=== PATIENT | female | born 1935 | race Caucasian/White ===

== ENCOUNTER 2016-12-25 15:40 | Emergency (ER) | payer OTHER ==
[2016-12-25 15:52] VITALS: BP 151/74; PULSE 73; TEMP 98.8; BMI 19.5
--- NOTE | 2016-12-25 16:57 | PDOC ---
History of Present Illness - General Chief Complaint: Back Pain Stated Complaint: BACK PAIN Time Seen by Provider: 12/25/16 16:11 - History of Present Illness Initial Comments: 01/01/17 13:27 Chief complaint: Low back pain History of present illness: Patient with multiple compression fractures of the lumbar spine in the past, presents with an exacerbation of her back pain. Onset gradual, worsening, taking no analgesics for the pain. Review of systems: Denies urinary or fecal incontinence or retention, denies radicular symptoms. Denies chest pain, shortness of breath, abdominal pain, nausea, vomiting, diarrhea, visual or focal neurologic symptoms, unsteadiness of gait Past medical history, social history, and family history reviewed from old record, noncontributory other than as noted Physical exam: Alert oriented well-developed well-nourished no acute distress cheerful and cooperative Afebrile, vital signs normal HEENT normal Neck without tenderness or deformity, no bruits masses or nodes Lungs clear CV regular without murmur rub or gallop Abdomen benign LS spine with straightening, loss of normal lumbar lordosis, no point tenderness or inflammatory changes. Straight leg raising negative. No distal sensory or motor deficits Impression: Exacerbation of chronic back pain. This was discussed with her daughter. Since the patient lives alone, narcotic analgesics to be avoided. Will continue taking Tylenol and prescribed lidocaine patch. Follow-up with primary physician. Plan: As above with supportive care from the family and PMD follow-up. Patient improved upon discharge, pain significantly improved. Past History - Past Medical History Allergies/Adverse Reactions: Allergies Allergy/AdvReac Type Severity Reaction Status Date / Time Sulfa (Sulfonamide Allergy Verified 07/29/16 13:18 Antibiotics) Home Medications: Ambulatory Orders Aspirin Coated [Ecotrin -] 81 mg PO DAILY #0 tablet.ec 06/24/15 Lidocaine 5% Patch [Lidoderm -] 1 patch TP DAILY #30 patch 12/25/16 CVA: Yes (TIA, CVA) HTN: Yes Hypercholesterolemia: Yes Thyroid Disease: Yes - Psycho/Social/Smoking Cessation Hx Anxiety: No Suicidal Ideation: No Smoking History: Never smoked Have you smoked in the past 12 months: Yes Number of Cigarettes Smoked Daily: 10 If you are a former smoker, when did you quit?: 2014 Information on smoking cessation initiated: No 'Breaking Loose' booklet given: 09/22/14 Hx Alcohol Use: No Drug/Substance Use Hx: No Substance Use Type: None Hx Substance Use Treatment: No *Physical Exam - Vital Signs Last Vital Signs Temp Pulse Resp BP Pulse Ox 98.8 F 73 18 151/74 97 12/25/16 15:40 12/25/16 15:40 12/25/16 15:40 12/25/16 15:40 12/25/16 15:40 *DC/Admit/Observation/Transfer Diagnosis at time of Disposition: Low back strain Qualifiers: Encounter type: initial encounter Qualified Code(s): S39.012A - Strain of muscle, fascia and tendon of lower back, initial encounter - Discharge Dispostion Disposition: HOME Condition at time of disposition: Stable Admit: No - Prescriptions Prescriptions: Lidocaine 5% Patch [Lidoderm -] 1 patch TP DAILY #30 patch - Referrals Referrals: Eduardo Aguilar MD [Primary Care Provider] - 3 days - Patient Instructions Printed Discharge Instructions: DI for Low Back Pain
[2016-12-25 17:02] LABS: URINE APPEARANCE Clear; URINE BILIRUBIN Negative (NEGATIVE); URINE BLOOD Negative (NEGATIVE); URINE COLOR YELLOW; URINE GLUCOSE (UA) Negative (NEGATIVE); URINE KETONE Negative (NEGATIVE); URINE LEUK ESTERASE Negative (NEGATIVE); URINE NITRITE Negative (NEGATIVE); URINE PROTEIN Negative (NEGATIVE); URINE UROBILINOGEN 0.2 E.U/dl (0.2-1.0)
[2016-12-25] MEDS ORDERED: LIDOCAINE 5% TOPICAL PATCH TP ONE (18:10)
== END 2016-12-25 19:04 | disposition home or self-care (01) ==
LOC: FER 15:40
DX: S39.012A Strain of muscle, fascia and tendon of lower back, initial encounter (principal); X58.XXXA Exposure to other specified factors, initial encounter; Y93.9 Activity, unspecified; Y92.9 Unspecified place or not applicable; Z87.891 Personal history of nicotine dependence; Z86.73 Personal history of transient ischemic attack (TIA), and cerebral infarction without residual deficits; I10 Essential (primary) hypertension; E07.9 Disorder of thyroid, unspecified; E78.00 Pure hypercholesterolemia, unspecified
CPT/HCPCS: 81003; 99282-25

== ENCOUNTER 2017-01-19 13:06 | Observation (INO) | payer OTHER ==
[2017-01-19] MEDS ORDERED: ACETAMINOPHEN 1000 MG/100 ML VIAL (NON FORMULARY) IVPB ONE (13:26)
[2017-01-19] MEDS ORDERED: SODIUM CHLORIDE 1,000 ML IV SCH ×2 (13:30→22:00)
[2017-01-19] MEDS ORDERED: ACETAMINOPHEN INJECTION 100 ML IVPB ONE (13:47)
--- NOTE | 2017-01-19 14:43 | PDOC ---
History of Present Illness <KhushbooEduardo Graves - Last Filed: 01/19/17 15:58> - General History Source: Patient, Family Exam Limitations: No Limitations - History of Present Illness Initial Comments: 01/19/17 15:23 CHIEF COMPLAINT: Confusion since 10 PM last night HISTORY OF PRESENT ILLNESS:81-year-old female with a history of stroke and TIAs , residual left hemisensory loss, presents complaining of confusion and difficulty swallowing that started at 10 PM last night. The patient has been having increasing back pain secondary to osteoporosis and spinal compression fractures. The pain has been much more severe over the last 3 weeks. She has been having increasing difficulty walking and getting out of bed. She restarted her baclofen 3 days ago, taking it 3 times daily on Wednesday and then 3 times daily yesterday. Last night she started to get more confused, and have difficulty swallowing and speaking. Her daughter became concerned so she brought her to the emergency department today. After coming into the emergency department, her confusion seems to be resolving. She continues to have severe low back pain with difficulty changing position, and great difficulty even sitting up. She denies fever or chills. She denies dysuria. REVIEW OF SYSTEMS: GENERAL/CONSTITUTIONAL: No fever or chills. Positive generalized weakness. No weight change. HEAD, EYES, EARS, NOSE AND THROAT: No change in vision. No ear pain or discharge. No sore throat. CARDIOVASCULAR: No chest pain or shortness of breath. RESPIRATORY: No cough, wheezing, or hemoptysis. GASTROINTESTINAL: No nausea, vomiting, diarrhea or constipation. No rectal bleeding. GENITOURINARY: No dysuria, frequency, or change in urination. MUSCULOSKELETAL: Severe chronic back pain, getting much worse in the recent weeks. History of multiple compression fractures in the spine. SKIN AND BREASTS: No rash or easy bruising. NEUROLOGIC: No headache, vertigo, loss of consciousness. Positive history of left-sided decreased sensation. Positive history of CVA and TIA. PSYCHIATRIC: No depression or anxiety. Patient is very concerned about her chronic back pain. ENDOCRINE: No increased thirst. No abnormal weight change. HEMATOLOGIC/LYMPHATIC: No anemia, easy bleeding, or history of blood clots. ALLERGIC/IMMUNOLOGIC: No hives or skin allergy. No latex allergy. <Kyle Michaels - Last Filed: 01/23/17 07:10> - General Chief Complaint: CVA/TIA Stated Complaint: NUMBNESS,BACK PAIN, SLURRED SPEECH Time Seen by Provider: 01/19/17 13:09 NIH Stroke Scale - Last Known Well Date/Time & Onset Date Last Known Well: 01/18/17 Time Last Known Well: 22:00 - Initial Evaluation Level of consciousness: Alert Ask patient the month and their age: Answers both correctly Ask patient to open & close eyes; make fist and let go: Obeys both correctly Best gaze (horizontal eye movement): Normal Visual field testing: No visual field loss Facial paresis (Show teeth/raise eyebrows/close eyes tight): Normal symmetrical movement Motor Function: Left Arm: Normal Motor Function: Right Arm: Normal (extends arm 90 (or 45) degrees for 10 seconds without drift Motor Function: Left Leg: Normal (extends leg 30 degrees for 5 seconds without drift) Motor Function: Right Leg: Normal (extends leg 30 degrees for 5 seconds without drift) Limb Ataxia: No ataxia Sensory(Use pinprick test arms,legs,trunk,face/side to side): Mild to moderate decrease in sensation Best language (Describe picture, name items, read sentences): No Aphasia Dysarthria (read several words): Normal articulation Extinction and Inattention: No abnormality (this sensory loss is from old stroke ) - Total Score NIH Stroke Scale Score: 1 <Kyle Michaels - Last Filed: 01/23/17 07:10> tPA Exclusion Checklist 0-3hr - Time Elapsed Date last known well: 01/18/17 Time last known well: 22:00 Elaspsed time: 4 Day(s) and 9 Hour(s) and 10 Minutes - Thrombolytic Therapy Candidate Is the patient eligible for Thrombolytic Therapy?: No - Ineligibility reason(s) Reasons No tPA given: Outside of window - delayed arrival <Kyle Michaels - Last Filed: 01/23/17 07:10> Past History <Eduardo Reaves - Last Filed: 01/19/17 15:58> - Past Medical History CVA: Yes (TIA, CVA) HTN: Yes Hypercholesterolemia: Yes Thyroid Disease: Yes Other medical history: osteoporosis, lumbar spine vertebral compression fractures - Psycho/Social/Smoking Cessation Hx Anxiety: No Suicidal Ideation: No Smoking History: Never smoked Have you smoked in the past 12 months: Yes Number of Cigarettes Smoked Daily: 10 If you are a former smoker, when did you quit?: 2014 Information on smoking cessation initiated: No 'Breaking Loose' booklet given: 09/22/14 Hx Alcohol Use: No Drug/Substance Use Hx: No Substance Use Type: None Hx Substance Use Treatment: No <Kyle Michaels - Last Filed: 01/23/17 07:10> - Past Medical History Allergies/Adverse Reactions: Allergies Allergy/AdvReac Type Severity Reaction Status Date / Time Sulfa (Sulfonamide Allergy Verified 01/19/17 13:23 Antibiotics) Home Medications: Ambulatory Orders Aspirin Coated [Ecotrin -] 81 mg PO DAILY #0 tablet.ec 06/24/15 Baclofen 10 mg PO TID 01/19/17 Levothyroxine Sodium [Synthroid] 88 mcg PO DAILY 01/19/17 Warfarin Sodium 4 mg PO DAILY 01/19/17 Acetaminophen W/ Codeine #3 [Tylenol # 3 -] 1 tab PO Q6H PRN #30 tablet MDD 4 Acetaminophen [Tylenol .Regular Strength -] 650 mg PO Q6H PRN #0 tablet Amino Acids/Protein Hydrolys [Prosource No Carb Liquid Pkt] 30 ml PO BID@0800, 1730 packet 01/21/17 Lidocaine 5% Patch [Lidoderm -] 1 patch TP DAILY patch 01/21/17 Lidocaine Patch Removal [Lidoderm Patch Removal] 1 each MC DAILY@2200 each 04/01 Polyethylene Glycol 3350 [Miralax 119 gm Btl -] 17 gm PO BID bottle 01/21/17 Ranitidine [Zantac -] 150 mg PO DAILY tablet 01/21/17 *Physical Exam - Vital Signs Last Vital Signs Temp Pulse Resp BP Pulse Ox 98.1 F 76 17 148/72 99 01/19/17 13:08 01/19/17 13:08 01/19/17 13:08 01/19/17 13:52 01/19/17 13:08 <Eduardo Reaves - Last Filed: 01/19/17 15:58> - Vital Signs Last Vital Signs Temp Pulse Resp BP Pulse Ox 98.1 F 76 17 148/72 99 01/19/17 13:08 01/19/17 13:08 01/19/17 13:08 01/19/17 13:52 01/19/17 13:08 - Physical Exam Comments: 01/19/17 15:28 GENERAL: The patient is awake, alert, and somewhat slow in her answers, but oriented 3 including January 2017. She is of severe lumbar back pain. HEAD: Normal with no signs of trauma. EYES: Pupils equal, round and reactive to light, extraocular movements intact, sclera anicteric, conjunctiva clear. ENT: Ears normal, nares patent, oropharynx clear without exudates. Moist mucous membranes. NECK: Normal range of motion, supple without lymphadenopathy, JVD, or masses. LUNGS: Breath sounds equal, clear to auscultation bilaterally. No wheezes, and no crackles. CHEST: Positive scoliosis of the thoracic spine and lumbar spine. HEART: Regular rate and rhythm, normal S1 and S2 without murmur, rub or gallop. ABDOMEN: Soft, nontender, normoactive bowel sounds. No guarding, no rebound. No masses. EXTREMITIES: Normal range of motion, no edema. No clubbing or cyanosis. No cords, erythema, or tenderness. NEUROLOGICAL: Cranial nerves normal. Motor is 5 over 5 in all extremities. No pronator drift. Positive left sided sensory loss to light touch in the arm and leg. (Old). Normal speech. Unable to walk due to severe low back pain. PSYCH: Normal mood, normal affect. SKIN: Warm, Dry, normal turgor, no rashes or lesions noted. <Kyle Michaels - Last Filed: 01/23/17 07:10> Heart Score/ECG Review - ECG Impressions Comment:: 01/19/17 15:58 12 lead EKG shows normal sinus rhythm at 71 bpm. Kinney is normal. The interval are normal, there is early re-polarization diffusely. Otherwise unremarkable EKG. <Eduardo Reaves - Last Filed: 01/19/17 15:58> ED Treatment Course - LABORATORY CBC & Chemistry Diagram: 01/19/17 13:40 01/19/17 13:40 - Medications Given in the ED: ED Medications Discontinued Medications Generic Name Dose Route Start Last Admin Trade Name Freq PRN Reason Stop Dose Admin Acetaminophen 500 mg 01/19/17 13:26 01/19/17 13:52 Ofirmev Injection - IVPB 01/19/17 13:27 500 mg ONCE ONE Administration <Eduardo Reaves - Last Filed: 01/19/17 15:58> - LABORATORY CBC & Chemistry Diagram: 01/20/17 07:16 01/20/17 07:16 - RADIOLOGY Radiology Studies Ordered: Category Date Time Status HEAD CT WITHOUT CONTRAST [CT] Stat CT Scan 01/19/17 13:24 Completed CHEST - PA [RAD] Stat Radiology 01/19/17 13:24 Taken SPINE-LUMBAR SACRAL [RAD] Stat Radiology 01/19/17 13:24 Completed - Medications Given in the ED: ED Medications Discontinued Medications Generic Name Dose Route Start Last Admin Trade Name Fremaciej PRN Reason Stop Dose Admin Acetaminophen 500 mg 01/19/17 13:26 01/19/17 13:52 Ofirmev Injection - IVPB 01/19/17 13:27 500 mg ONCE ONE Administration - Consult/PCP Case discussed with personal care physician: Eduardo Aguilar M <Kyle Michaels - Last Filed: 01/23/17 07:10> Medical Decision Making - Medical Decision Making 01/19/17 14:44 LUMBAR SPINE X-RAY impressions reported by Dr. Lee: Osteopenia. Compression deformity involving the superior endplate of L1. Compression deformity involving the superior, inferior endplate of L2 - increased in comparison to x-rays of lumbosacral spine June 16, 2015. 01/19/17 14:[address] Impressions reported by : No evidence of acute intercranial hemorrhage, edema, midline shift, mass effect , or skull fracture. No CT evidence of acute territorial infarction 01/19/17 15:02 CHEST X-RAY impressions reported by : No evidence of active pulmonary disease. <Eduardo Reaves - Last Filed: 01/19/17 15:58> - Medical Decision Making 01/19/17 15:36 Patient is a 81-year-old female who presents to the emergency department with acute confusional state and difficulty speaking and swallowing since 10 PM last night. She is outside of any possible window for TPA given that the symptoms have been present for over 12 hours. She is also outside the window for any catheter based therapy. The patient's confusion could possibly be due to cerebrovascular disease, but also could be possibly related to the baclofen which she restarted 72 hours ago. She does appear to be improving here in the ED, with confusion having resolved and her difficulty speaking and swallowing also resolving. She has been eating poorly and is somewhat dehydrated with hyponatremia. Impression: 1) acute confusional state, possibly related to baclofen toxicity, possible TIA with symptoms now resolving. 2) dehydration and poor by mouth intake with hyponatremia. 3) severe osteoporosis with multiple spinal compression fractures with chronic debilitating pain and difficulty ambulating, given IV acetaminophen in the emergency department. Patient had some modest relief of pain. Laboratory Results - last 24 hr 01/19/17 01/19/17 01/19/17 13:40 13:40 13:40 WBC 7.1 RBC 4.06 Hgb 12.4 Hct 36.1 MCV 88.7 MCHC 34.3 RDW 15.3 Plt Count 192 MPV 7.0 L Neutrophils % 81.2 Lymphocytes % 8.6 Monocytes % 8.6 Eosinophils % 1.1 Basophils % 0.5 Sodium 129 L Potassium 4.3 Chloride 96 L Carbon Dioxide 24 Anion Gap 9 BUN 11 D Creatinine 0.7 Creat Clearance w eGFR > 60 Random Glucose 109 H D Calcium 9.3 Total Bilirubin 0.8 D AST 30 ALT 24 D Alkaline Phosphatase 131 H D Creatine Kinase 75 Total Protein 6.5 Albumin 3.8 Urine Appearance Urine pH Ur Specific [place] Urine Protein Urine Glucose (UA) Urine Ketones Urine Blood Urine Nitrite Urine Bilirubin Urine Urobilinogen Ur Leukocyte Esterase 01/19/17 15:03 WBC RBC Hgb Hct MCV MCHC RDW Plt Count MPV Neutrophils % Lymphocytes % Monocytes % Eosinophils % Basophils % Sodium Potassium Chloride Carbon Dioxide Anion Gap BUN Creatinine Creat Clearance w eGFR Random Glucose Calcium Total Bilirubin AST ALT Alkaline Phosphatase Creatine Kinase Total Protein Albumin Urine Appearance Clear Urine pH 5.5 Ur Specific [place] <= 1.005 Urine Protein Negative Urine Glucose (UA) Negative Urine Ketones Negative Urine Blood 1+ H Urine Nitrite Negative Urine Bilirubin Negative Urine Urobilinogen 0.2 e.u/dl Ur Leukocyte Esterase Negative 01/19/17 15:41 [facility] hospitalist notified regarding admission. 01/19/17 16:36 The scribe's documentation has been prepared under my direction and personally reviewed by me in its entirety. I have confirmed that the note above accurately reflects all work, treatment, procedures, and medical decision- making performed by me. <Kyle Michaels - Last Filed: 01/23/17 07:10> *DC/Admit/Observation/Transfer <Eduardo Reaves - Last Filed: 01/19/17 15:58> - Discharge Dispostion Admit: Yes Decision to Admit order Date/Time: 01/19/17 15:[address] Aguilar <Kyle Michaels - Last Filed: 01/23/17 07:10> Diagnosis at time of Disposition: Acute encephalopathy, Hyponatremia, Dehydration Lumbar compression fracture Qualifiers: Encounter type: initial encounter Fracture type: closed Qualified Code(s): S32.000A - Wedge compression fracture of unspecified lumbar vertebra, initial encounter for closed fracture - Discharge Dispostion Condition at time of disposition: Improved
[2017-01-19 14:51] LABS: BASOPHIL 0.5 % (0-2.0); EOSINOPHIL 1.1 % (0-4.5); MCH 30.4 pg (25.7-33.7); MCHC 34.3 g/dl (32.0-36.0); MEAN CELL VOLUME 88.7 fl (80-96); NEUTROPHILS 81.2 % (42.8-82.8); PLATELET COUNT 192 K/MM3 (134-434); RDW 15.3 % (11.6-15.6); WHITE BLOOD COUNT 7.1 K/mm3 (4.0-10.0)
[2017-01-19 15:08] LABS: ALBUMIN 3.8 g/dl (3.5-5.0); ALK PHOS 131 U/L (32-92); ANION GAP 9 (8-16); BILIRUBIN,TOTAL 0.8 mg/dl (0.2-1.0); CALCIUM 9.3 mg/dl (8.4-10.2); CO2 24 mmol/L (22-28); CREATININE 0.7 mg/dl (0.6-1.3); GLUCOSE,RANDOM 109 mg/dl (74-106); SGOT/AST 30 U/L (10-42); SGPT/ALT 24 U/L (10-40); TOT PROT 6.5 g/dl (6.4-8.3)
[2017-01-19 15:10] LABS: CPK(DFH) 75 IU/L (26-140)
[2017-01-19 15:16] LABS: PH,URINE 5.5 (4.5-8); URINE APPEARANCE Clear; URINE BILIRUBIN Negative (NEGATIVE); URINE GLUCOSE (UA) Negative (NEGATIVE); URINE KETONE Negative (NEGATIVE); URINE LEUK ESTERASE Negative (NEGATIVE); URINE NITRITE Negative (NEGATIVE); URINE PROTEIN Negative (NEGATIVE); URINE UROBILINOGEN 0.2 E.U/dl (0.2-1.0)
[2017-01-19 15:18] LABS: URINE BLOOD 1+ (NEGATIVE)
[2017-01-19 15:43] LABS: INR 3.01 (0.82-1.09)
[2017-01-19 16:08] LABS: TROPONIN I (DFP) < 0.03 ng/ml (0.03-0.50)
[2017-01-19 18:53] VITALS: BMI 14.8
[2017-01-19] MEDS ORDERED: ACETAMINOPHEN 325 MG TABLET (FP) PO PRN (21:40)
[2017-01-19] MEDS ORDERED: HEPARIN NA (PORCINE) 5,000 UNITS/ML 1ML VIAL SQ SCH (22:00)
--- NOTE | 2017-01-19 22:20 | HP ---
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 Also associated with difficulty swallowing. Pt now reports that she had taken 4 baclofen pills in a 12 hour period yesterday. Upon exam, pt now alert and fully oriented. Pt denies any further trouble swallowing or altered mental status but does report severe back pain. The back pain is chronic but has gotten progressively worse over the past few weeks and restarted her baclofen 2 days ago. Pt denies chest pain, palpitations , SOB, N/V/D. Reports last BM was 8 days ago and reports she frequently only has very small BMs and often has leakage of stool. ER course was notable for: (1) LS xray with worsened compression fractures. (2) Sodium 129 Recent Travel: pt denies PAST MEDICAL HISTORY: Hyperlipidemia CVA/TIAs hypothyroidism denies any history of atrial fibrillation or irregular heartbeat PAST SURGICAL HISTORY: bladder lift and tubal lligation age 34 Social History: Smoking: quit 2 years ago, previous 3/4ppd smoker Alcohol: pt denies Drugs: pt denies Family History: mother age 90, dementia, mac degeneration father age 32, WW2 sister age 59, NC sister age 65, cervical cancer son age 46, NC daughter age 49, [place] Allergies Sulfa (Sulfonamide Antibiotics) Allergy (Verified 01/19/17 13:23) HOME MEDICATIONS: 3 Medication Instructions Recorded Aspirin Coated [Ecotrin -] 81 mg PO DAILY #0 tablet.ec 06/24/15 Baclofen 10 mg PO TID 01/19/17 Levothyroxine Sodium [Synthroid] 88 mcg PO DAILY 01/19/17 Warfarin Sodium 4 mg PO DAILY 01/19/17 Atorvastatin 40mg po daily REVIEW OF SYSTEMS CONSTITUTIONAL: Present: generalized weakness, malaise Absent: fever, chills, diaphoresis, loss of appetite, weight change HEENT: Absent: rhinorrhea, nasal congestion, throat pain, throat swelling, difficulty swallowing, mouth swelling, ear pain, eye pain, visual changes CARDIOVASCULAR: Absent: chest pain, syncope, palpitations, irregular heart rate, lightheadedness , peripheral edema RESPIRATORY: Absent: cough, shortness of breath, dyspnea with exertion, orthopnea, wheezing, stridor, hemoptysis GASTROINTESTINAL: Absent: abdominal pain, abdominal distension, nausea, vomiting, diarrhea, constipation, melena, hematochezia GENITOURINARY: Absent: dysuria, frequency, urgency, hesitancy, hematuria, flank pain, genital pain MUSCULOSKELETAL: Present: back pain Absent: myalgia, arthralgia, joint swelling, neck pain SKIN: Absent: rash, itching, pallor HEMATOLOGIC/IMMUNOLOGIC: Absent: easy bleeding, easy bruising, lymphadenopathy, frequent infections ENDOCRINE: Absent: unexplained weight gain, unexplained weight loss, heat intolerance, cold intolerance NEUROLOGIC: Present: mental status changes Absent: headache, focal weakness or paresthesias, dizziness, unsteady gait, seizure, bladder or bowel incontinence PSYCHIATRIC: Absent: anxiety, depression, suicidal or homicidal ideation, hallucinations. PHYSICAL EXAMINATION Vital Signs - 24 hr 3 01/19/17 01/19/17 01/19/17 13:08 13:52 18:10 Temperature 98.1 F 98.9 F Pulse Rate 76 81 Respiratory 17 Rate Blood Pressure 148/72 148/72 148/75 O2 Sat by Pulse 99 Oximetry (%) GENERAL: Awake, alert, and fully oriented, in no acute distress. HEAD: Normal with no signs of trauma. EYES: Pupils equal, round and reactive to light, extraocular movements intact, sclera anicteric, conjunctiva clear. No lid lag. EARS, NOSE, THROAT: Ears normal, nares patent, oropharynx clear without exudates. Dry mucous membranes. NECK: Normal range of motion, supple without lymphadenopathy, JVD, or masses. LUNGS: Breath sounds equal, clear to auscultation bilaterally. No wheezes, and no crackles. No accessory muscle use. HEART: Regular rate and rhythm, normal S1 and S2 without murmur, rub or gallop. ABDOMEN: Soft, nontender, not distended, normoactive bowel sounds, no guarding, no rebound, no masses. No hepatomegaly or splenomegaly. rectal exam with small amount formed stool. MUSCULOSKELETAL: Normal range of motion at all joints. No bony deformities or tenderness. No CVA tenderness. UPPER EXTREMITIES: 2+ pulses, warm, well-perfused. No cyanosis. No clubbing. No peripheral edema. LOWER EXTREMITIES: 2+ pulses, warm, well-perfused. No calf tenderness. No peripheral edema. NEUROLOGICAL: Cranial nerves II-XII intact. Normal speech. Normal gait. PSYCHIATRIC: Cooperative. Good eye contact. Appropriate mood and affect. SKIN: Warm, dry, poor turgor, no rashes or lesions noted, normal capillary refill. Laboratory Results - last 24 hr 3 01/19/17 01/19/17 01/19/17 01/19/17 13:40 13:40 13:40 13:41 WBC 7.1 RBC 4.06 Hgb 12.4 Hct 36.1 MCV 88.7 MCHC 34.3 RDW 15.3 Plt Count 192 MPV 7.0 L Neutrophils % 81.2 Lymphocytes % 8.6 Monocytes % 8.6 Eosinophils % 1.1 Basophils % 0.5 INR 3.01 H Sodium 129 L Potassium 4.3 Chloride 96 L Carbon Dioxide 24 Anion Gap 9 BUN 11 D Creatinine 0.7 Creat Clearance w eGFR > 60 Random Glucose 109 H D Calcium 9.3 Total Bilirubin 0.8 D AST 30 ALT 24 D Alkaline Phosphatase 131 H D Creatine Kinase 75 Troponin I < 0.03 L Total Protein 6.5 Albumin 3.8 Urine Appearance Urine pH Ur Specific [place] Urine Protein Urine Glucose (UA) Urine Ketones Urine Blood Urine Nitrite Urine Bilirubin Urine Urobilinogen Ur Leukocyte Esterase 3 Urine Appearance Clear 01/19/17 15:03 Urine pH 5.5 (4.5-8) 01/19/17 15:03 Ur Specific [place] <= 1.005 (1.005-1.025) 01/19/17 15:03 Urine Protein Negative (NEGATIVE) 01/19/17 15:03 Urine Glucose (UA) Negative (NEGATIVE) 01/19/17 15:03 Urine Ketones Negative (NEGATIVE) 01/19/17 15:03 Urine Blood 1+ (NEGATIVE) H 01/19/17 15:03 Urine Nitrite Negative (NEGATIVE) 01/19/17 15:03 Urine Bilirubin Negative (NEGATIVE) 01/19/17 15:03 Ur Leukocyte Esterase Negative (NEGATIVE) 01/19/17 15:03 Imaging RAD/SPINE-LUMBAR SACRAL Direct pain. Lumbosacral spine 4 views. Paranasal study June 16, 2015 Demineralized also structures. Compression deformity involving the superior endplate of L1. Compression deformity involving the superior, inferior endplate of L2. Increased concavity of the inferior endplate of L3. Loss of disc space height at L4-5 L5-S1. Facet joint arthropathy noted at several levels in the lumbosacral spine. Impression Osteopenia. Compression deformity involving the superior endplate of L1. Compression deformity involving the superior, inferior endplate of L2 - increased in comparison to x- rays of lumbosacral spine June 16, 2015. RAD/CHEST - PA Dizziness. Single AP view of the chest compared with August 18, 2015. Unremarkable contour of the cardiomediastinal silhouette. Calcified aortic arch. Uncoiled thoracic aorta. No evidence of pneumonia, CHF, pleural effusion or pneumothorax. Patient is rotated toward the right side. No evidence of blunting of the costophrenic angles, effacement of the diaphragm. Impression. No evidence of active pulmonary disease. CT/HEAD CT WITHOUT CONTRAST Clinical information. Confusion, dizziness CT scan of the brain C-. Findings. Serial axial images of the brain were obtained from foramen magnum to the cranial vertex without intravenous contrast. Loss of volume of the brain parenchyma with involutional changes. This CSF spaces unchanged from November 03, 2014 There is no evidence of acute subarachnoid hemorrhage, acute intra-axial or extra-axial fluid collection consistent with subdural or epidural hematoma. No mass effect, midline shift, acute ischemic changes, herniation or edema is present. Normal chance matter white matter differentiation. The cortical sulci, sylvian fissures, perimesencephalic cisterns are not effaced. Intracranial vascular calcifications are noted Examination of the bone windows show no fracture. The visualized paranasal sinuses and mastoid air cells are clear. Impression. No evidence of acute intracranial hemorrhage, edema, midline shift, mass effect, or skull fracture. No CT evidence of acute territorial infarction. ECG NSR Rate 71, QTC 419, no acute ST/T changes ASSESSMENT/PLAN: 81yF with PMH CVA/TIA, hypothyroid who presented to the ED with altered mental status. She is being admitted for further management. Altered mental status - likely due to baclofen toxicity - resolved, dc swallow eval, swallowing water without difficulty - will avoid sedating medications Back pain/compression fractures LSpine - pt refusing any pain medications. States she has oversedation reactions to tramadol and oxycodone 1/2 a tab and is unwilling to try at lower doses - pt states lidocaine patch, aspercreme, bengay has not helped in the past and lidocaine was not covered by her insurance and was $300 for a one month supply - spine consult ordered - cont tylenol prn. hyponatremia - cont NS @ 125cc/hr, repeat BMP 10pm constipation - start miralax BID CVA/TIA - doubtful if new CVA/TIa given baclofen use and resolution of symptoms off same - cont home coumadin, pt states her INR was high last week and her coumadin was held with a restart for tomorrow. Given INR 3.01 will restart tomorrow as planned - cont ASA and lipitor - will check lipid panel, last in computer 10/2015 DVT PPX - low risk given therapeutic INR, cont home coumadin FEN - NS @ 125cc/hr - repeat BMP 10pm and in am - regular diet Dispo: pt currently requires inpatient management of her emergent condition. Addendum 01:40: Repeat BMP not in computer, verbal obtained from nursing sorting supervisor at . Na 127, K 4.0, Cl 95, CO2 24 Sodium lower than on admission, However, IVF were not continued once pt reached inpatient unit and as such did not receive from approx 630pm to 10pm. Will continue IV at current rate and repeat in AM. Visit type - Emergency Visit Emergency Visit: Yes ED Registration Date: 01/19/17 Care time: The patient presented to the Emergency Department on the above date and was hospitalized for further evaluation of their emergent condition. - New Patient This patient is new to me today: Yes Date on this admission: 01/20/17 - Critical Care Critical Care patient: No
--- NOTE | 2017-01-20 08:11 | PN ---
Physical Exam: SUBJECTIVE: Patient seen and examined, patient ambulatory with walker, reports pain to lower back. OBJECTIVE: patient is a 81 y/o female with a past medical history of cva/tia, L2 compression fracture and hypothyroidism. patient was admitted from the emergency department for altered mental status, hyponatremia and intractable back pain Vital Signs Period Temp Pulse Resp BP Sys/Troncoso Pulse Ox Last 24 Hr 98.2 F-99.5 F 81-88 17-19 116-148/56-75 95-96 GENERAL: The patient is awake, alert, and fully oriented, anxious. HEAD: Normal with no signs of trauma. EYES: PERRL, extraocular movements intact, sclera anicteric, conjunctiva clear. No ptosis. ENT: Ears normal, nares patent, oropharynx clear without exudates, moist mucous membranes. NECK: Trachea midline, full range of motion, supple. LUNGS: Breath sounds equal, clear to auscultation bilaterally, no wheezes, no crackles, no accessory muscle use. HEART: Regular rate and rhythm, S1, S2 without murmur, rub or gallop. ABDOMEN: Soft, nontender, nondistended, normoactive bowel sounds, no guarding, no rebound, no hepatosplenomegaly, no masses. EXTREMITIES: 2+ pulses, warm, well-perfused, no edema. MUSC/SKELETAL: paraspinal tenderness to L2-L3. NEUROLOGICAL: Cranial nerves II through XII grossly intact. Normal speech, gait not observed. PSYCH: Normal mood, normal affect. SKIN: Warm, dry, normal turgor, no rashes or lesions noted Active Medications Generic Name Dose Route Start Last Admin Trade Name Freq PRN Reason Stop Dose Admin Acetaminophen 650 mg 01/19/17 21:40 Tylenol - PO Q6H PRN FEVER OR PAIN Aspirin 81 mg 01/20/17 10:00 Ecotrin - PO DAILY NADER Sodium Chloride 1,000 mls @ 125 mls/hr 01/19/17 22:00 Normal Saline - IV ASDIR NADER Levothyroxine Sodium 88 mcg 01/20/17 10:00 Synthroid - PO DAILY@0700 NADER Polyethylene Glycol 17 gm 01/20/17 10:00 Miralax (For Daily Use) - PO BID NADER Warfarin Sodium 2 mg 01/22/17 18:00 Coumadin - PO MoFr@1800 NADER Warfarin Sodium 4 mg 01/20/17 18:00 Coumadin - PO SuTuWeThSa@1800 NADER CBC WBC 7.2 K/mm3 (4.0-10.0) 01/20/17 07:16 RBC 3.79 M/mm3 (3.60-5.2) 01/20/17 07:16 Hgb 11.5 GM/dL (10.7-15.3) 01/20/17 07:16 Hct 33.9 % (32.4-45.2) 01/20/17 07:16 MCV 89.5 fl (80-96) 01/20/17 07:16 MCHC 34.0 g/dl (32.0-36.0) 01/20/17 07:16 RDW 15.6 % (11.6-15.6) 01/20/17 07:16 Plt Count 185 K/MM3 (134-434) 01/20/17 07:16 MPV 7.0 fl (7.5-11.1) L 01/20/17 07:16 Neutrophils % 77.6 % (42.8-82.8) 01/20/17 07:16 Lymphocytes % 10.9 % (8-40) D 01/20/17 07:16 Monocytes % 9.5 % (3.8-10.2) 01/20/17 07:16 Eosinophils % 1.4 % (0-4.5) 01/20/17 07:16 Basophils % 0.6 % (0-2.0) 01/20/17 07:16 CMP Sodium 137 mmol/L (136-145) 01/20/17 07:16 Potassium 4.1 mmol/L (3.5-5.1) 01/20/17 07:16 Chloride 104 mmol/L (98-107) 01/20/17 07:16 Carbon Dioxide 25 mmol/L (22-28) 01/20/17 07:16 Anion Gap 8 (8-16) 01/20/17 07:16 BUN 10 mg/dl (7-18) 01/20/17 07:16 Creatinine 0.6 mg/dl (0.6-1.3) 01/20/17 07:16 Creat Clearance w eGFR > 60 (>60) 01/19/17 13:40 Random Glucose 87 mg/dl (74-106) D 01/20/17 07:16 Calcium 8.9 mg/dl (8.4-10.2) 01/20/17 07:16 Phosphorus 2.7 mg/dl (2.5-4.6) 01/20/17 Unknown Magnesium 1.6 mg/dL (1.8-2.4) L 01/20/17 07:16 Total Bilirubin 0.8 mg/dl (0.2-1.0) D 01/19/17 13:40 AST 30 U/L (10-42) 01/19/17 13:40 ALT 24 U/L (10-40) D 01/19/17 13:40 Alkaline Phosphatase 131 U/L (32-92) H D 01/19/17 13:40 Creatine Kinase 75 IU/L (26-140) 01/19/17 13:40 Troponin I < 0.03 ng/ml (0.03-0.50) L 01/19/17 13:40 Total Protein 6.5 g/dl (6.4-8.3) 01/19/17 13:40 Albumin 3.8 g/dl (3.5-5.0) 01/19/17 13:40 Triglycerides 46 mg/dl (35-160) D 01/20/17 07:16 Cholesterol 118 mg/dl 01/20/17 07:16 Total LDL Cholesterol 39 mg/dL (5-100) 01/20/17 07:16 HDL Cholesterol 70 mg/dl (29-89) 01/20/17 07:16 Laboratory Tests 01/20/17 07:16 INR 2.23 H IMAGING RAD/SPINE-LUMBAR SACRAL Impression Osteopenia. Compression deformity involving the superior endplate of L1. Compression deformity involving the superior, inferior endplate of L2 - increased in comparison to x-rays of lumbosacral spine June 16, 2015. RAD/CHEST -Impression. No evidence of active pulmonary disease. CT/HEAD CT WITHOUT CONTRAST Impression. No evidence of acute intracranial hemorrhage, edema, midline shift, mass effect, or skull fracture. No CT evidence of acute territorial infarction. ECG NSR Rate 71, QTC 419, no acute ST/T changes ASSESSMENT/PLAN: 1)neuro: Altered mental status - pt is back to baseline, AMS likely due to baclofen toxicity - 20lb unexplained weight loss noted, lumbar spine mri ordered r/o metastatic disease -continue neurochecks CVA/TIA - continue coumadin 4mg (home dose), INR 2.2 2) ortho: compression fractures of LS - declines ultram, tylenol #3 ordered - physical therapy eval - appreciate pain management input (Adithya) - appreciate spine input (Rodrigo) F/E/N - regular diet hyponatremia resolved malnutrition - bmi 14, unexplained 20 lb weight loss, dietary supplements ordered - appreciate dietary input ppx - coumadin - PT - scd - oob - zantac Dispo: pt currently requires inpatient management of her emergent condition. Problem List - Problems (1) Lumbar compression fracture Code(s): S32.000A - WEDGE COMPRESSION FRACTURE OF UNSP LUMBAR VERTEBRA, INIT Qualifiers: Encounter type: initial encounter Fracture type: closed Qualified Code(s): S32.000A - Wedge compression fracture of unspecified lumbar vertebra, initial encounter for closed fracture (2) Malnutrition Code(s): E46 - UNSPECIFIED PROTEIN-CALORIE MALNUTRITION
[2017-01-20 08:30] LABS: ACTIVATED PTT 36.4 SECONDS (24.0-38.9)
[2017-01-20 09:06] LABS: INR 2.23 (0.82-1.09); PROTHROMBIN TIME (PATIENT) 24.6 SEC (10.2-13.0)
[2017-01-20 09:19] LABS: ANION GAP 8 (8-16); CALCIUM 8.9 mg/dl (8.4-10.2); CHOLESTEROL 118 mg/dl; CO2 25 mmol/L (22-28); CREATININE 0.6 mg/dl (0.6-1.3); GLUCOSE,RANDOM 87 mg/dl (74-106); MAGNESIUM 1.6 mg/dL (1.8-2.4)
[2017-01-20 10:15] LABS: BASOPHIL 0.6 % (0-2.0); EOSINOPHIL 1.4 % (0-4.5); MCH 30.4 pg (25.7-33.7); MEAN CELL VOLUME 89.5 fl (80-96); NEUTROPHILS 77.6 % (42.8-82.8); PLATELET COUNT 185 K/MM3 (134-434); RDW 15.6 % (11.6-15.6); WHITE BLOOD COUNT 7.2 K/mm3 (4.0-10.0)
[2017-01-20] MEDS: ASPIRIN COATED 81 MG TABLET.EC PO SCH (10:53)
[2017-01-20] MEDS: LEVOTHYROXINE NA 88 MCG TABLET (FP) PO SCH (10:53)
[2017-01-20] MEDS ORDERED: MAGNESIUM SULFATE 2 GM in SODIUM CHLORIDE 100 ML IVPB ONE (10:56)
[2017-01-20] MEDS: POLYETHYLENE GLYCOL 3350 119 GM BTL PO SCH ×2 (10:58→21:29)
[2017-01-20] MEDS ORDERED: MAGNESIUM SULF 50% (8.12 MEQ/2 ML-1 GM VIAL) IVPB ONE (12:00)
[2017-01-20 12:07] LABS: LDL CHOLESTEROL (ONLY SJRH) 39 mg/dL (5-100)
[2017-01-20] MEDS ORDERED: ACETAMINOPHEN WITH CODEINE 300MG/30MG TABLET PO PRN (12:07)
[2017-01-20] MEDS: LIDOCAINE 5% TOPICAL PATCH TP SCH (13:16)
[2017-01-20] MEDS: RANITIDINE HCL 150 MG TABLET (FP) PO SCH (13:20)
--- NOTE | 2017-01-20 14:30 | EKG ---
Test Reason : Blood Pressure : / mmHG Vent. Rate : 071 BPM Atrial Rate : 071 BPM P-R Int : 152 ms QRS Dur : 076 ms QT Int : 386 ms P-R-T Axes : 066 064 059 degrees QTc Int : 419 ms NORMAL SINUS RHYTHM NORMAL ECG NO PREVIOUS ECGS AVAILABLE Confirmed by YESICA CLARK MD ([id number]) on 01/20/2017 2:29:35 PM Referred By: DR MEHTA Confirmed By:YESICA CLARK MD
[2017-01-20 17:13] LABS: ANION GAP 5 (8-16); CALCIUM 8.7 mg/dl (8.4-10.2); CO2 26 mmol/L (22-28); CREATININE 0.7 mg/dl (0.6-1.3); GLUCOSE,RANDOM 110 mg/dl (74-106)
[2017-01-20 17:20] LABS: COCKROFT - GAULT NT
[2017-01-20] MEDS: AMINO ACIDS/PROTEIN HYDROLYS 30 ML LIQUID.PKT PO SCH (17:27)
[2017-01-20] MEDS ORDERED: WARFARIN NA 2 MG TABLET (UD) PO SCH (18:00)
[2017-01-20 20:07] LABS: URINE COLOR YELLOW
[2017-01-20] MEDS ORDERED: LIDOCAINE PATCH REMOVAL MC SCH (22:00)
[2017-01-21] MEDS: LEVOTHYROXINE NA 88 MCG TABLET (FP) PO SCH (06:21)
[2017-01-21] MEDS: AMINO ACIDS/PROTEIN HYDROLYS 30 ML LIQUID.PKT PO SCH ×2 (08:00→16:52)
[2017-01-21] MEDS: LIDOCAINE 5% TOPICAL PATCH TP SCH (09:25)
[2017-01-21] MEDS: RANITIDINE HCL 150 MG TABLET (FP) PO SCH (09:26)
[2017-01-21] MEDS: ASPIRIN COATED 81 MG TABLET.EC PO SCH (09:26)
[2017-01-21] MEDS: POLYETHYLENE GLYCOL 3350 119 GM BTL PO SCH (09:27)
--- NOTE | 2017-01-21 12:44 | CONSULT ---
Consult Consult Specialty:: pain management Referred by:: hospitalist Reason for Consultation:: back pain. compression fx - History of Present Illness Chief Complaint: back pain History of Present Illness: 81 year old woman with a history of severe back pain. Patient found to have severe compression fx's which are acute Pain score 9/10 - Past Medical History [employer]: Yes: CVA. No: Alzheimer's, Dementia, Migraine, Multiple Sclerosis, Peripheral Neuropathy, Parkinson's, Seizure, Syncope, TIA, Vertigo, Other Cardio/Vascular: Yes: Hyperlipdemia Endocrine: Yes: Hypothyroidism. No: [place]'s Disease, [place]'s Disease, Diabetes Insipidus, Diabetes Mellitus, Hyperparathyroidism, Hyperthyroidism, Osteopenia, SIADH, Other - Alcohol/Substance Use Hx Alcohol Use: No - Smoking History Smoking history: Former smoker Have you smoked in the past 12 months: No Aproximately how many cigarettes per day: 10 If you are a former smoker, when did you quit?: 2014 Home Medications - Allergies Allergies/Adverse Reactions: Allergies Allergy/AdvReac Type Severity Reaction Status Date / Time Sulfa (Sulfonamide Allergy Verified 01/19/17 13:23 Antibiotics) - Home Medications Home Medications: Ambulatory Orders Aspirin Coated [Ecotrin -] 81 mg PO DAILY #0 tablet.ec 06/24/15 Baclofen 10 mg PO TID 01/19/17 Levothyroxine Sodium [Synthroid] 88 mcg PO DAILY 01/19/17 Warfarin Sodium 4 mg PO DAILY 01/19/17 Physical Exam Vital Signs: Vital Signs Temperature 99.1 F 01/21/17 05:34 Pulse Rate 92 H 01/21/17 05:34 Respiratory Rate 18 01/21/17 08:00 Blood Pressure 125/59 01/21/17 05:34 O2 Sat by Pulse Oximetry (%) 97 01/21/17 08:00 Musculoskeletal: Yes: Back Pain Labs: CBC, BMP 01/20/17 07:16 01/20/17 07:16 Assessment/Plan Lower back pain secondary to acute compression fractures x3 1. Interventionally- The patient is a candidate for a kyphoplasty. The patient at this time does not want to pursue the procedure. IF she changes her mind she would need to get clearance to hold coumadin for 5 days prior to procedure. 2. Pharmacologically- Tylenol prn pain Lidocaine patches Consider tramadol prn pain 3. Rehab/PT eval 4. Patient does not want to use a back brace
--- NOTE | 2017-01-21 14:21 | DS ---
Physical Exam: SUBJECTIVE: Patient seen and examined OBJECTIVE: Vital Signs Period Temp Pulse Resp BP Sys/Troncoso Pulse Ox Last 24 Hr 97.7 F-99.1 F 92-97 16-20 111-125/59-65 96-99 PHYSICAL EXAM GENERAL: The patient is awake, alert, and fully oriented, in no acute distress. HEAD: Normal with no signs of trauma. EYES: PERRL, extraocular movements intact, sclera anicteric, conjunctiva clear. ENT: Ears normal, nares patent, oropharynx clear without exudates, moist mucous membranes. NECK: Trachea midline, full range of motion, supple. LUNGS: Breath sounds equal, clear to auscultation bilaterally, no wheezes, no crackles, no accessory muscle use. HEART: Regular rate and rhythm, S1, S2 without murmur, rub or gallop. ABDOMEN: Soft, nontender, nondistended, normoactive bowel sounds, no guarding, no rebound, no hepatosplenomegaly, no masses. EXTREMITIES: 2+ pulses, warm, well-perfused, no edema. NEUROLOGICAL: Cranial nerves II through XII grossly intact. Normal speech, gait not observed. PSYCH: Normal mood, normal affect. SKIN: Warm, dry, normal turgor, no rashes or lesions noted. LABS Laboratory Results - last 24 hr 01/19/17 01/20/17 22:00 07:16 Sodium 127 L 137 Potassium 4.0 4.1 Chloride 96 L 104 Carbon Dioxide 26 25 Anion Gap 5 L 8 BUN 14 D 10 D Creatinine 0.7 0.6 Random Glucose 110 H 87 D Calcium 8.7 8.9 Magnesium 1.6 L Triglycerides 46 D Cholesterol 118 Total LDL Cholesterol 39 HDL Cholesterol 70 HOSPITAL COURSE: Date of Admission:01/19/17 Date of Discharge: 01/21/17 Minutes to complete discharge: 45 Discharge Summary Reason For Visit: ENCEPHALOPATHY,DEHYD Current Active Problems Abdominal pain (Acute) Acute encephalopathy (Acute) Dehydration (Acute) Hyponatremia (Acute) Jejunitis (Acute) Lumbar compression fracture (Acute) Malnutrition (Acute) Condition: Guarded - Home Medications Comprehensive Discharge Medication List: Ambulatory Orders Aspirin Coated [Ecotrin -] 81 mg PO DAILY #0 tablet.ec 06/24/15 Baclofen 10 mg PO TID 01/19/17 Levothyroxine Sodium [Synthroid] 88 mcg PO DAILY 01/19/17 Warfarin Sodium 4 mg PO DAILY 01/19/17 Problem List - Problems (1) Lumbar compression fracture Code(s): S32.000A - WEDGE COMPRESSION FRACTURE OF UNSP LUMBAR VERTEBRA, INIT Qualifiers: Encounter type: initial encounter Fracture type: closed Qualified Code(s): S32.000A - Wedge compression fracture of unspecified lumbar vertebra, initial encounter for closed fracture (2) Malnutrition Code(s): E46 - UNSPECIFIED PROTEIN-CALORIE MALNUTRITION
[2017-01-21 14:26] VITALS: BP 102/57; PULSE 98; TEMP 98.8
[2017-01-22] MEDS ORDERED: WARFARIN NA 2 MG TABLET (UD) PO SCH (18:00)
[2017-01-23 13:55] LABS: THYROID STIMULATING HORMONE 0.98 uIU/ml (0.358-3.74)
== END 2017-01-21 17:05 ==
LOC: FER 13:06 → FM/S 17:41
PROVIDERS: ADMIT Internal Medicine; ATTEND Nurse Practitioner Family
PROC: 3E033GC Introduction of Other Therapeutic Substance into Peripheral Vein, Percutaneous Approach (ICD-10-PCS; principal; 2017-01-19)
PROC: 3E0337Z Introduction of Electrolytic and Water Balance Substance into Peripheral Vein, Percutaneous Approach (ICD-10-PCS; 2017-01-19)
DX: G93.49 Other encephalopathy (principal); E87.1 Hypo-osmolality and hyponatremia; E86.0 Dehydration; M48.56XA Collapsed vertebra, not elsewhere classified, lumbar region, initial encounter for fracture; Z86.73 Personal history of transient ischemic attack (TIA), and cerebral infarction without residual deficits; Z87.891 Personal history of nicotine dependence; E03.9 Hypothyroidism, unspecified; K59.00 Constipation, unspecified; Z79.82 Long term (current) use of aspirin
CPT/HCPCS: 36415; 70450-TC; 71010-TC; 72100-TC; 72148-TC; 80048; 80053; 80061; 81003; 82550; 83721; 83735; 84100; 84443; 84484; 85025; 85610; 85730; 93005; 93306-TC; 97116-GP; 97162; 99285-25; G0378